=== PATIENT | male | born 1965 | race Caucasian/White ===

== ENCOUNTER 2018-02-03 01:08 | Inpatient (IN) | payer MEDICAID ==
[~2018-02-03] VITALS: Ht 180.3 cm; Wt 161.0 kg
[~2018-02-03 01:08] MED LIST: ASPI-1197 PO; DILT120C12 PO; ISOS20TA7 PO; LACT10SO8 PO; LEVO50TA11 PO; METO-391 PO; NITR0.4T SL; OXYB10TA PO; RIFA550T PO
[2018-02-03 02:16] LABS: BASOPHILS % (AUTO) 0.5 % (0.0-5.0); EOSINOPHILS % (AUTO) 11.5 % (0.0-8.0); HEMATOCRIT 45.2 % (42-54); LYMPHOCYTES % (AUTO) 13.8 % (21.0-51.0); MEAN CORPUSCULAR HEMOGLOBIN 35.1 pg (27.0-33.0); MEAN CORPUSCULAR HGB CONC 34.6 g/dL (32.0-36.0); MEAN CORPUSCULAR VOLUME 101.6 fL (79-99); NEUTROPHILS % (AUTO) 62.2 % (40.0-77.0); NUCLEATED RED BLOOD CELLS 0.1 % (0.0-0.19); PLATELET COUNT (AUTO) 105 K/uL (130-400); RED BLOOD CELL COUNT(AUTO) 4.45 MIL/uL (4.50-6.20); RED CELL DISTRIBUTION WIDTH 16.4 % (11.0-15.5); WHITE BLOOD COUNT (AUTO) 6.2 K/uL (4.8-10.8)
[2018-02-03 02:21] LABS: CREATININE 2.4 mg/dL (0.5-1.5); POTASSIUM 3.4 mmol/L (3.5-5.1)
[2018-02-03 02:23] LABS: INR 1.41 (0.85-1.15); PARTIAL THROMBOPLASTIN TIME 30.7 SEC (26.3-35.5); PROTHROMBIN TIME 14.7 SEC (9.6-11.6)
[2018-02-03 02:25] LABS: ALBUMIN 2.3 g/dL (3.5-5.0); BILIRUBIN,TOTAL 5.4 mg/dL (0.2-1.0); TOTAL PROTEIN, SERUM 6.4 g/dL (6.0-8.3)
[2018-02-03] MEDS ORDERED: ACETAMINOPHEN 325 MG TAB PO PRN ×3 (04:00→11:00)
[2018-02-03] MEDS ORDERED: CEFTRIAXONE SODIUM 1 GM IVP SCH (04:00)
[2018-02-03] MEDS ORDERED: SODIUM CHLORIDE 0.9% 1000ML 1,000 ML IV SCH (04:00)
[2018-02-03] MEDS ORDERED: LACTULOSE 20 GM/30 ML UDCUP ONE ×2 (04:34→10:34)
[2018-02-03] MEDS ORDERED: ONDANSETRON HCL MDV 20ML 2 MG/ML VIAL IVP PRN ×2 (07:00→11:15)
[2018-02-03] MEDS ORDERED: PANTOPRAZOLE SODIUM 40 MG TABLET.DR PO ONE (08:29)
[2018-02-03] MEDS: LACTULOSE 20 GM/30 ML UDCUP PO SCH ×4 (09:00→22:16)
[2018-02-03] MEDS ORDERED: FAMOTIDINE 20MG TAB 20 MG TAB PO SCH (09:00)
[2018-02-03] MEDS: PANTOPRAZOLE SODIUM 40 MG TABLET.DR PO SCH (09:00)
[2018-02-03] MEDS: SODIUM CHLORIDE 0.9% 1000ML 1,000 ML IV SCH ×2 (10:59→22:21)
[2018-02-03] MEDS ORDERED: NITROGLYCERIN 0.4 MG SL TAB SL PRN (11:00)
[2018-02-03] MEDS ORDERED: GUAIFENESIN-DM 200/20 MG 10 ML PO PRN (11:00)
[2018-02-03] MEDS ORDERED: LACTULOSE 20 GM/30 ML UDCUP PO PRN (11:00)
[2018-02-03] MEDS ORDERED: HYDRALAZINE HCL 20 MG/ML VIAL IV PRN (11:00)
[2018-02-03] MEDS ORDERED: ZOLPIDEM TARTRATE 5 MG TAB PO PRN (11:00)
[2018-02-03] MEDS ORDERED: DILTIAZEM HCL 60 MG TABLET ONE (12:16)
[2018-02-03 17:13] VITALS: BP 146/68
[2018-02-03 19:37] VITALS: BP 149/70
[2018-02-03] MEDS: RIFAXIMIN 550 MG TABLET PO SCH (22:16)
[2018-02-03 23:42] VITALS: BP 154/86
[2018-02-04 04:00] VITALS: BP 148/88
[2018-02-04 04:53] LABS: HEMATOCRIT 45.2 % (42-54); MEAN CORPUSCULAR HEMOGLOBIN 35.9 pg (27.0-33.0); MEAN CORPUSCULAR HGB CONC 35.4 g/dL (32.0-36.0); MEAN CORPUSCULAR VOLUME 101.4 fL (79-99); PLATELET COUNT (AUTO) 92 K/uL (130-400); RED BLOOD CELL COUNT(AUTO) 4.46 MIL/uL (4.50-6.20); RED CELL DISTRIBUTION WIDTH 16.2 % (11.0-15.5); WHITE BLOOD COUNT (AUTO) 5.9 K/uL (4.8-10.8)
[2018-02-04 04:58] LABS: ALBUMIN 2.3 g/dL (3.5-5.0); BILIRUBIN,TOTAL 5.7 mg/dL (0.2-1.0); CREATININE 1.4 mg/dL (0.5-1.5); POTASSIUM 3.2 mmol/L (3.5-5.1); TOTAL PROTEIN, SERUM 6.4 g/dL (6.0-8.3)
[2018-02-04 08:36] VITALS: BP 162/82
[2018-02-04] MEDS: LACTULOSE 20 GM/30 ML UDCUP PO SCH ×4 (08:48→20:25)
[2018-02-04] MEDS: RIFAXIMIN 550 MG TABLET PO SCH ×2 (08:49→20:25)
[2018-02-04] MEDS: DILTIAZEM HCL 120 MG CAP.SR.24H PO SCH (08:49)
[2018-02-04] MEDS: PANTOPRAZOLE SODIUM 40 MG TABLET.DR PO SCH (08:49)
[2018-02-04] MEDS ORDERED: NITROGLYCERIN 0.4 MG SL TAB SL SCH (10:15)
[2018-02-04 12:30] VITALS: BP 146/95
[2018-02-04 17:07] VITALS: BP 174/88
[2018-02-04 19:20] VITALS: BP 167/91
[2018-02-04] MEDS: METOPROLOL TARTRATE 25 MG TAB PO SCH (20:25)
[2018-02-04 23:20] VITALS: BP 136/77
[2018-02-05] VITALS (7 sets, daily range): BP systolic 128–148; BP diastolic 70–96
[2018-02-05 04:34] LABS: HEMATOCRIT 44.6 % (42-54); MEAN CORPUSCULAR HEMOGLOBIN 36.5 pg (27.0-33.0); MEAN CORPUSCULAR HGB CONC 35.9 g/dL (32.0-36.0); MEAN CORPUSCULAR VOLUME 101.5 fL (79-99); PLATELET COUNT (AUTO) 87 K/uL (130-400); RED BLOOD CELL COUNT(AUTO) 4.39 MIL/uL (4.50-6.20); WHITE BLOOD COUNT (AUTO) 5.1 K/uL (4.8-10.8)
[2018-02-05 04:44] LABS: CREATININE 1.2 mg/dL (0.5-1.5); POTASSIUM 3.4 mmol/L (3.5-5.1)
[2018-02-05] MEDS: ISOSORBIDE MONO 30MG TAB SR PO SCH (10:22)
[2018-02-05] MEDS: ASPIRIN 81MG TAB.CHEW PO SCH (10:23)
[2018-02-05] MEDS: DILTIAZEM HCL 120 MG CAP.SR.24H PO SCH (10:23)
[2018-02-05] MEDS: PANTOPRAZOLE SODIUM 40 MG TABLET.DR PO SCH (10:24)
[2018-02-05] MEDS: OXYBUTYNIN 5 MG TAB.SR.24H PO SCH (10:24)
[2018-02-05] MEDS: RIFAXIMIN 550 MG TABLET PO SCH ×2 (10:24→20:02)
[2018-02-05] MEDS: METOPROLOL TARTRATE 25 MG TAB PO SCH ×2 (10:24→20:01)
[2018-02-05] MEDS: LEVOTHYROXINE 50 MCG TABLET PO SCH (10:24)
[2018-02-05] MEDS: LACTULOSE 20 GM/30 ML UDCUP PO SCH ×3 (13:55→20:01)
[2018-02-05] MEDS: NYSTATIN 30 GM CREAM.GM. TP SCH (20:02)
[2018-02-06 03:26] VITALS: BP 124/78
[2018-02-06 06:40] LABS: HEMATOCRIT 43.1 % (42-54); MEAN CORPUSCULAR HEMOGLOBIN 36.6 pg (27.0-33.0); MEAN CORPUSCULAR HGB CONC 35.6 g/dL (32.0-36.0); MEAN CORPUSCULAR VOLUME 102.8 fL (79-99); NUCLEATED RED BLOOD CELLS 0.1 % (0.0-0.19); PLATELET COUNT (AUTO) 85 K/uL (130-400); RED BLOOD CELL COUNT(AUTO) 4.19 MIL/uL (4.50-6.20); RED CELL DISTRIBUTION WIDTH 15.9 % (11.0-15.5)
[2018-02-06 06:49] LABS: CREATININE 1.1 mg/dL (0.5-1.5); POTASSIUM 3.5 mmol/L (3.5-5.1)
[2018-02-06 08:00] VITALS: BP 144/92
[2018-02-06] MEDS: LACTULOSE 20 GM/30 ML UDCUP PO SCH ×4 (09:55→20:39)
[2018-02-06] MEDS: PANTOPRAZOLE SODIUM 40 MG TABLET.DR PO SCH (09:55)
[2018-02-06] MEDS: OXYBUTYNIN 5 MG TAB.SR.24H PO SCH (09:55)
[2018-02-06] MEDS: ISOSORBIDE MONO 30MG TAB SR PO SCH (09:56)
[2018-02-06] MEDS: ASPIRIN 81MG TAB.CHEW PO SCH (09:57)
[2018-02-06] MEDS: DILTIAZEM HCL 120 MG CAP.SR.24H PO SCH (09:57)
[2018-02-06] MEDS: METOPROLOL TARTRATE 25 MG TAB PO SCH ×2 (09:57→20:39)
[2018-02-06] MEDS: LEVOTHYROXINE 50 MCG TABLET PO SCH (09:57)
[2018-02-06] MEDS: NYSTATIN 30 GM CREAM.GM. TP SCH ×2 (09:59→20:39)
[2018-02-06] MEDS: RIFAXIMIN 550 MG TABLET PO SCH ×2 (10:02→20:39)
[2018-02-06 11:00] VITALS: BP 138/76
[2018-02-06 16:00] VITALS: BP 140/81
[2018-02-06 19:33] VITALS: BP 142/59
[2018-02-06 23:51] VITALS: BP 150/72
[2018-02-07 04:00] VITALS: BP 148/70
[2018-02-07 08:00] VITALS: BP 141/73
[2018-02-07] MEDS: LACTULOSE 20 GM/30 ML UDCUP PO SCH ×4 (09:00→20:38)
[2018-02-07] MEDS: LEVOTHYROXINE 50 MCG TABLET PO SCH (09:32)
[2018-02-07] MEDS: OXYBUTYNIN 5 MG TAB.SR.24H PO SCH (09:33)
[2018-02-07] MEDS: DILTIAZEM HCL 120 MG CAP.SR.24H PO SCH (09:33)
[2018-02-07] MEDS: ISOSORBIDE MONO 30MG TAB SR PO SCH (09:33)
[2018-02-07] MEDS: METOPROLOL TARTRATE 25 MG TAB PO SCH ×2 (09:33→20:38)
[2018-02-07] MEDS: PANTOPRAZOLE SODIUM 40 MG TABLET.DR PO SCH (09:34)
[2018-02-07] MEDS: RIFAXIMIN 550 MG TABLET PO SCH ×2 (09:34→20:38)
[2018-02-07] MEDS: ASPIRIN 81MG TAB.CHEW PO SCH (09:34)
[2018-02-07] MEDS: NYSTATIN 30 GM CREAM.GM. TP SCH ×2 (10:59→20:38)
[2018-02-07 11:00] VITALS: BP 126/67
[2018-02-07 16:00] VITALS: BP 138/72
[2018-02-07 19:30] VITALS: BP 144/65
[2018-02-07 23:10] VITALS: BP 136/65
[2018-02-08 03:20] VITALS: BP 131/64
[2018-02-08 08:00] VITALS: BP 134/79
[2018-02-08] MEDS: METOPROLOL TARTRATE 25 MG TAB PO SCH (08:48)
[2018-02-08] MEDS: LACTULOSE 20 GM/30 ML UDCUP PO SCH (08:48)
[2018-02-08] MEDS: PANTOPRAZOLE SODIUM 40 MG TABLET.DR PO SCH (08:48)
[2018-02-08] MEDS: DILTIAZEM HCL 120 MG CAP.SR.24H PO SCH (08:48)
[2018-02-08] MEDS: LEVOTHYROXINE 50 MCG TABLET PO SCH (08:48)
[2018-02-08] MEDS: OXYBUTYNIN 5 MG TAB.SR.24H PO SCH (08:49)
[2018-02-08] MEDS: ISOSORBIDE MONO 30MG TAB SR PO SCH (08:49)
[2018-02-08] MEDS: ASPIRIN 81MG TAB.CHEW PO SCH (08:49)
[2018-02-08] MEDS: NYSTATIN 30 GM CREAM.GM. TP SCH (08:50)
[2018-02-08] MEDS: RIFAXIMIN 550 MG TABLET PO SCH (09:04)
[2018-02-08] MEDS ORDERED: LACT10SO8 PO (09:54)
[2018-02-08 11:51] VITALS: BP 152/76
== END 2018-02-08 15:25 | disposition home or self-care (01) | DRG 279 ==
LOC: EDH 01:08 → OBSVTOIN 01:09 → EDHIP 01:09 → 3DH 16:40
PROVIDERS: ADMIT Family Medicine; ATTEND Family Medicine
DX: K72.90 Hepatic failure, unspecified without coma (principal); N17.9 Acute kidney failure, unspecified; D69.59 Other secondary thrombocytopenia; E66.01 Morbid (severe) obesity due to excess calories; Z68.42 Body mass index [BMI] 45.0-49.9, adult; K70.30 Alcoholic cirrhosis of liver without ascites; D73.1 Hypersplenism; I12.9 Hypertensive chronic kidney disease with stage 1 through stage 4 chronic kidney disease, or unspecified chronic kidney disease; N18.9 Chronic kidney disease, unspecified; Z91.19 Patient's noncompliance with other medical treatment and regimen; E03.9 Hypothyroidism, unspecified; Z90.49 Acquired absence of other specified parts of digestive tract; Z28.21 Immunization not carried out because of patient refusal
CPT/HCPCS: 36415; 80048; 80053; 82140; 83690; 85025; 85027; 85610; 85730; 97039; J7030